=== PATIENT | female | born 1965 | race African-American/Black ===

== ENCOUNTER 2018-08-02 10:27 | Emergency (ER) | payer BC ==
[~2018-08-02] VITALS: Ht 223.5 cm; Wt 68.5 kg
--- NOTE | 2018-08-02 10:40 | NUR ---
BIB SELF FOR C/O BLURRED VISION THIS MORNING AROUND 8:20AM, LOST PERIPHERAL VISION FOR SEVERAL MINS, HEADACHE 7/10 PS RADIATING TO BACK OF NECK AREA, +NAUSEA. TO ER BED 11, HOOKED TO MONITOR, CHANGED TO GOWN, PROVIDED W WARM BLANKET, AWAITING MD MASON
--- NOTE | 2018-08-02 10:53 | NUR ---
DR LOPEZ AT BEDSIDE
[2018-08-02] MEDS ORDERED: METOCLOPRAMIDE HCL 10 MG/2 ML VIAL IV ONE (11:00)
[2018-08-02] MEDS ORDERED: diphenhydrAMINE HCL 50 MG/ML VIAL IV ONE (11:00)
[2018-08-02] MEDS ORDERED: IV NS 0.9% 1,000 ML IV ONE (11:00)
[2018-08-02] MEDS ORDERED: METOCLOPRAMIDE HCL 10 MG/2 ML VIAL ONE (11:28)
[2018-08-02] MEDS ORDERED: diphenhydrAMINE HCL 50 MG/ML VIAL ONE (11:28)
--- NOTE | 2018-08-02 13:24 | NUR ---
IV removed. Catheter intact and site benign. Pressure and 4x4 applied to site. No bleeding noted.Patient discharged to home in stable condition. Written and verbal after care instructions given. Patient verbalizes understanding of instruction.
[2018-08-02 13:29] VITALS: BP 117/64
== END 2018-08-02 13:30 | disposition home or self-care (01) ==
LOC: ER 10:27
DX: G43.909 Migraine, unspecified, not intractable, without status migrainosus (principal); J45.909 Unspecified asthma, uncomplicated; R11.2 Nausea with vomiting, unspecified; Z88.1 Allergy status to other antibiotic agents; Z88.5 Allergy status to narcotic agent
CPT/HCPCS: 96361; 96374; 96375; 99283; J1200; J2765; J7030 ×2

== ENCOUNTER 2024-05-31 09:37 | Emergency (ER) | payer BC ==
[~2024-05-31] VITALS: Ht 162.6 cm; Wt 65.8 kg
[2024-05-31] MEDS ORDERED: predniSONE 20 MG TABLET ONE (10:18)
[2024-05-31] MEDS ORDERED: FAMOTIDINE (20 MG) 20 MG TABLET ONE (10:18)
[2024-05-31] MEDS ORDERED: LORATADINE 10 MG TABLET ONE (10:18)
[2024-05-31] MEDS: predniSONE 10 MG TABLET PO ONE (10:27)
[2024-05-31] MEDS: FAMOTIDINE (20 MG) 20 MG TABLET PO ONE (10:27)
[2024-05-31] MEDS: LORATADINE 10 MG TABLET PO SCH (10:28)
[2024-05-31 10:31] LABS: BASOPHILS % (AUTO) 0.4 % (0.0-2.0); EOSINOPHILS # (AUTO) 0.1 K/uL (0.0-0.7); EOSINOPHILS % (AUTO) 2.6 % (0.0-6.0); HEMATOCRIT 38 % (33-45); HEMOGLOBIN 12.5 g/dL (11.5-14.8); LYMPHOCYTES # (AUTO) 1.3 K/uL (0.8-4.8); LYMPHOCYTES % (AUTO) 34.4 % (20.0-44.0); MEAN CORPUSCULAR HEMOGLOBIN 32 PG (26.0-33.0); MEAN CORPUSCULAR HGB CONC 33 g/dl (31.0-36.0); MEAN CORPUSCULAR VOLUME 96 fL (82-100); MONOCYTES # (AUTO) 0.4 K/uL (0.1-1.30); MONOCYTES % (AUTO) 11.4 % (2.0-12.0); NEUTROPHILS % (AUTO) 51.2 % (43.0-81.0); PLATELET COUNT (AUTO) 303 K/uL (150-450); RED BLOOD CELL COUNT(AUTO) 3.91 MIL/uL (4.0-5.2); RED CELL DISTRIBUTION WIDTH 13.3 % (11.5-15.0); WHITE BLOOD COUNT (AUTO) 3.9 K/uL (4.3-11.0)
[2024-05-31 10:40] LABS: CALCIUM, SERUM 9.9 mg/dL (8.5-10.1); CARBON DIOXIDE 25 mmol/L (21-32); CHLORIDE 105 mmol/L (98-107); CREATININE 0.9 mg/dL (0.6-1.3); GLUCOSE 92 mg/dL (74-106); POTASSIUM 3.8 mmol/L (3.5-5.1); SODIUM SERUM 141 mmol/L (136-145); UREA NITROGEN, BLOOD 14 mg/dL (7-18)
[2024-05-31] MEDS ORDERED: FAMO20TA8 PO (13:27)
[2024-05-31] MEDS ORDERED: EPIN0.3P3 IM (13:27)
[2024-05-31] MEDS ORDERED: LORA10TA7 PO (13:27)
[2024-05-31] MEDS ORDERED: PRED50TA PO (13:27)
[2024-05-31 13:58] VITALS: BP 131/69; TEMP 98.3; O2SAT 100
== END 2024-05-31 13:59 | disposition home or self-care (01) ==
LOC: ER 09:49
DX: T50.Z95A Adverse effect of other vaccines and biological substances, initial encounter (principal); J45.909 Unspecified asthma, uncomplicated; Z79.52 Long term (current) use of systemic steroids; Z88.0 Allergy status to penicillin; Z88.2 Allergy status to sulfonamides; Z88.5 Allergy status to narcotic agent; Z60.2 Problems related to living alone; Y92.89 Other specified places as the place of occurrence of the external cause
CPT/HCPCS: 99285; 93005; 71045; 85025; 80048; 36415; 84484 ×2; J7512 ×2